=== PATIENT | male | born 1960 ===

== ENCOUNTER 2018-01-02 04:43 | Emergency (ER) | payer BC, OTHER ==
[2018-01-02 04:51] VITALS: TEMP 97.7; O2SAT 100
[2018-01-02] MEDS: Sodium Chloride 0.9% 1,000 ML IV STA (05:26)
--- NOTE | 2018-01-02 05:26 | ED PDOC ---
HPI: Abdomen Time Seen by Provider: 01/02/18 05:00 Chief Complaint (Nursing): Abdominal Pain Chief Complaint (Provider): abdominal pain History Per: Patient History/Exam Limitations: no limitations Onset/Duration Of Symptoms: Hrs (4) Current Symptoms Are (Timing): Still Present Location Of Pain/Discomfort: Epigastric Quality Of Discomfort: "Pain" Associated Symptoms: Nausea, Vomiting Additional Complaint(s): 57 y/o male presents with epigastric abdominal pain x 4 hours. Associated nausea, vomiting. No relief with Tums. Denies fever, chest pain, shortness of breath, palpitations, changes in bowel movements, urinary symptoms, recent travel, sick contacts. Past Medical History Reviewed: Historical Data, Nursing Documentation, Vital Signs Vital Signs: Last Vital Signs Temp 97.7 F 01/02/18 04:48 Pulse 81 01/02/18 04:48 Resp 16 01/02/18 04:48 BP 121/90 01/02/18 04:48 Pulse Ox 100 01/02/18 05:29 - Medical History PMH: Hypercholesterolemia - Surgical History Surgical History: Hernia Repair - Family History Family History: States: No Known Family Hx - Living Arrangements Living Arrangements: With Family - Home Medications Home Medications: Ambulatory Orders Medication Instructions Recorded Omeprazole [Prilosec] 20 mg PO DAILY #14 ecc 06/02/14 - Allergies Allergies/Adverse Reactions: Allergies Allergy/AdvReac Type Severity Reaction Status Date / Time shrimp Allergy ANAPHYLAXIS Verified 01/02/18 04:59 Review of Systems ROS Statement: Except As Marked, All Systems Reviewed And Found Negative Gastrointestinal: Positive for: Nausea, Vomiting, Abdominal Pain Physical Exam - Reviewed Nursing Documentation Reviewed: Yes Vital Signs Reviewed: Yes - Physical Exam Appears: Positive for: Well, Non-toxic, Uncomfortable Head Exam: Positive for: ATRAUMATIC, NORMAL INSPECTION, NORMOCEPHALIC Skin: Positive for: Normal Color Eye Exam: Positive for: Normal appearance ENT: Positive for: Normal ENT Inspection Cardiovascular/Chest: Positive for: Regular Rate, Rhythm Respiratory: Positive for: Normal Breath Sounds Gastrointestinal/Abdominal: Positive for: Bowel Sounds, Soft, Tenderness ( epigastric) Back: Positive for: Normal Inspection Extremity: Positive for: Normal ROM Neurologic/Psych: Positive for: Alert, Oriented - Laboratory Results Result Diagrams: 01/02/18 05:30 - ECG ECG: Positive for: Viewed By Me (reviewed by ED attending) ECG Rhythm: Positive for: Sinus Rhythm O2 Sat by Pulse Oximetry: 100 - Progress ED Course And Treament: labs, ekg, IV fluids, IV pepcid, IV reglan, ODT zofran, abdomen u/s Disposition - Clinical Impression Clinical Impression: Abdominal pain - Disposition Disposition: Transfer of Care Disposition Time: 06:00 Condition: STABLE Forms: [facility] (Chilean) Patient Signed Over To: Re Lynn Handoff Comments: pending labs, u/s, re-eval
[2018-01-02 05:48] LABS: BASO % 0.4 % (0.0-2.0); EOS # 0.1 K/uL (0.0-0.7); EOS % 1.5 % (0.0-4.0); HEMOGLOBIN 15.9 g/dL (12.0-18.0); LYMPH # 1.1 K/uL (1.0-4.3); LYMPH % 10.8 % (20.0-40.0); MEAN CELL VOLUME 87.7 fl (80.0-94.0); MEAN CORPUSCULAR HEMOGLOBIN 29.8 pg (27.0-31.0); MEAN PLATELET VOLUME 8.5 fl (7.2-11.7); MONO # 0.4 K/uL (0.0-0.8); MONO % 3.5 % (0.0-10.0); NEUT # 8.5 K/uL (1.8-7.0); NEUT % 83.8 % (50.0-75.0); NRBC % 0.1 % (0.0-0.0); RBC 5.32 Mil/uL (4.40-5.90); RED CELL DISTRIBUTION WIDTH 14.2 % (11.5-14.5); WHITE BLOOD COUNT 10.2 K/uL (4.8-10.8)
[2018-01-02 05:50] LABS: ALB/GLOB RATIO 1.3 (1.0-2.1); ALBUMIN 4.3 g/dL (3.5-5.0); ALT/SGPT 38 U/L (21-72); AST/SGOT 30 U/L (17-59); BLOOD UREA NITROGEN 29 mg/dl (9-20); GFR AFRICAN-AMERICAN > 60; GFR NON-AFRICAN AMERICAN > 60; LIPASE 54 U/L (23-300)
--- NOTE | 2018-01-02 09:30 | US ---
HISTORY: upper abd pain, vomiting COMPARISON: Abdominal ultrasound dated 06/02/2014. TECHNIQUE: Sonographic evaluation of the right upper quadrant of the abdomen. FINDINGS: LIVER: Measures 15.6 cm in length. Normal echogenicity of the liver parenchyma. Right hepatic lobe simple cyst redemonstrated measuring 2.1 x 2.2 x 1.9 cm. No intrahepatic bile duct dilatation. GALLBLADDER: Unremarkable. No gallstones. COMMON BILE DUCT: Measures 6 mm. No stones. No dilatation. PANCREAS: Unremarkable as visualized. No mass. No ductal dilatation. RIGHT KIDNEY: Measures 10.7 x 5.7 x 6.2 cm in length. Normal echogenicity. No calculus, mass, or hydronephrosis. AORTA: No aneurysmal dilatation. IVC: Unremarkable. OTHER FINDINGS: None . IMPRESSION: Stable right hepatic lobe simple cyst. Otherwise, unremarkable right upper quadrant abdominal ultrasound
--- NOTE | 2018-01-02 10:14 | ED PDOC ---
- Laboratory Results Result Diagrams: 01/02/18 05:30 01/02/18 05:30 - ECG O2 Sat by Pulse Oximetry: 100 Medical Decision Making Medical Decision Making: Accession No. : [id number] Patient Name / ID : RAMIRO CHAUHAN / [id number] Exam Date : 01/02/2018 09:32:37 ( Approved ) Study Comment : Sex / Age : M / 57Y Creator : Ranulfo Pace MD Dictator : Ranulfo Pace MD Gastroenterology Nurse : Medical Scheduler : Ranulfo Pace MD Approver2 : Report Date : 01/02/2018 09:28:40 My Comment : HISTORY: upper abd pain, vomiting COMPARISON: Abdominal ultrasound dated 06/02/2014. TECHNIQUE: Sonographic evaluation of the right upper quadrant of the abdomen. FINDINGS: LIVER: Measures 15.6 cm in length. Normal echogenicity of the liver parenchyma. Right hepatic lobe simple cyst redemonstrated measuring 2.1 x 2.2 x 1.9 cm. No intrahepatic bile duct dilatation. GALLBLADDER: Unremarkable. No gallstones. COMMON BILE DUCT: Measures 6 mm. No stones. No dilatation. PANCREAS: Unremarkable as visualized. No mass. No ductal dilatation. RIGHT KIDNEY: Measures 10.7 x 5.7 x 6.2 cm in length. Normal echogenicity. No calculus, mass, or hydronephrosis. AORTA: No aneurysmal dilatation. IVC: Unremarkable. OTHER FINDINGS: None . IMPRESSION: Stable right hepatic lobe simple cyst. Otherwise, unremarkable right upper quadrant abdominal ultrasound no further vomiting in ED Recd IVF and improved clinically Abd nontender on re-eval at 10am DC w nieves ODT and referral to GI Disposition Counseled Patient/Family Regarding: Studies Performed, Diagnosis, Need For Followup, Rx Given - Clinical Impression Clinical Impression: Abdominal pain - POA Present On Arrival: None - Disposition Referrals: Michael Akins MD [Primary Care Provider] - Vince Infante MD [Staff Provider] - Disposition: Routine/Home Disposition Time: 10:07 Condition: STABLE Prescriptions: Ondansetron ODT [Zofran ODT] 4 mg PO Q6 PRN #10 odt PRN Reason: Nausea/Vomiting Ranitidine HCl [Zantac] 150 mg PO BID #20 tablet Instructions: Acute Abdomen (Belly Pain), Adult (DC), Nausea and Vomiting, Adult Forms: [facility] (Ukrainian) Print Language: GREEK
[2018-01-02 11:16] VITALS: BP 123/71; PULSE 78; RESP 18
--- NOTE | 2018-01-02 18:53 | CARD ---
APPROVED REPORT EKG Measurement Heart [id number] <Conclusion> Sinus rhythm with 1st degree AV block Otherwise normal ECG
== END 2018-01-02 10:25 | disposition home or self-care (01) ==
LOC: H.ER 04:43
DX: R10.13 Epigastric pain (principal); E78.00 Pure hypercholesterolemia, unspecified
CPT/HCPCS: 76705; 80053; 83690; 85025; 93005; 96374; 99283; J2765; J7040